=== PATIENT | male | born 1980 | race Asian ===

== ENCOUNTER 2020-01-04 21:06 | Emergency (ER) | payer OTHER ==
[~2020-01-04] VITALS: Ht 180.3 cm; Wt 78.0 kg
[2020-01-04 21:37] LABS: PLATELET COUNT 272 K/uL (142-355)
[2020-01-04 21:42] LABS: POTASSIUM 3.4 mmol/L (3.6-5.2); SODIUM 139 mmol/L (136-145)
[2020-01-04 23:50] VITALS: BP 149/95; TEMP 98.3
== END 2020-01-05 00:10 | disposition short-term general hospital (02) ==
LOC: ED 21:12
PROVIDERS: Emergency Medicine Emergency Medical Services
PROC: 0T9B70Z Drainage of Bladder with Drainage Device, Via Natural or Artificial Opening (ICD-10-PCS; principal; 2020-01-04)
DX: R41.82 Altered mental status, unspecified (principal); S42.295A Other nondisplaced fracture of upper end of left humerus, initial encounter for closed fracture; W18.39XA Other fall on same level, initial encounter; Y92.89 Other specified places as the place of occurrence of the external cause
CPT/HCPCS: 36415; 51702; 80053; 80307; 81000; 82550; 82553; 84484; 85027; 96360; 99285

== ENCOUNTER 2020-01-18 14:58 | Emergency (ER) | payer BC ==
[~2020-01-18] VITALS: Ht 180.3 cm; Wt 78.0 kg
[2020-01-18 15:05] VITALS: TEMP 98.9
[2020-01-18] MEDS ORDERED: DIVA500T2 PO (15:21)
[2020-01-18] MEDS ORDERED: LEVE500T5 PO (15:23)
[2020-01-18 15:43] LABS: PLATELET COUNT 436 K/uL (142-355)
[2020-01-18 15:52] LABS: POTASSIUM 4.1 mmol/L (3.6-5.2)
[2020-01-18 16:25] VITALS: BP 139/86
== END 2020-01-18 16:41 | disposition home or self-care (01) ==
LOC: ED 14:58
PROVIDERS: Emergency Medicine Emergency Medical Services
DX: K21.9 Gastro-esophageal reflux disease without esophagitis (principal)
CPT/HCPCS: 80053; 80164; 85027; 99283